=== PATIENT | male | born 1960 | race Two or more races ===

== ENCOUNTER 2020-10-03 10:35 | Outpatient (CLI) | payer OTHER | END 2020-10-03 10:42 | disposition home or self-care (01) | LOC: SONOGRAMA 10:35 | PROVIDERS: ATTEND Internal Medicine | DX: L98.8 Other specified disorders of the skin and subcutaneous tissue (principal); M79.661 Pain in right lower leg; M76.821 Posterior tibial tendinitis, right leg; M89.561 Osteolysis, right lower leg ==

== ENCOUNTER 2021-06-12 06:31 | Outpatient (CLI) | payer OTHER | END 2021-06-12 06:37 | disposition home or self-care (01) | LOC: LAB 06:31 | PROVIDERS: ATTEND Urology | DX: N40.1 Benign prostatic hyperplasia with lower urinary tract symptoms (principal); E78.49 Other hyperlipidemia ==

== ENCOUNTER → 2022-04-20 09:45 | Outpatient (CLI) | payer OTHER | END | disposition home or self-care (01) | LOC: LAB 09:45 | DX: E87.8 Other disorders of electrolyte and fluid balance, not elsewhere classified (principal); E11.9 Type 2 diabetes mellitus without complications; E78.2 Mixed hyperlipidemia; C18.9 Malignant neoplasm of colon, unspecified; E03.9 Hypothyroidism, unspecified; N42.9 Disorder of prostate, unspecified; D63.8 Anemia in other chronic diseases classified elsewhere ==

== ENCOUNTER 2022-04-23 09:27 | Outpatient (CLI) | payer OTHER | END 2022-04-23 09:31 | disposition home or self-care (01) | LOC: MRI 09:27 | PROVIDERS: ATTEND Orthopaedic Surgery | DX: S76.111A Strain of right quadriceps muscle, fascia and tendon, initial encounter (principal) | CPT/HCPCS: 73718 ==

== ENCOUNTER 2022-04-26 14:10 | Outpatient (CLI) | payer OTHER | END 2022-04-26 14:20 | disposition home or self-care (01) | LOC: RAD 14:10 | PROVIDERS: ATTEND Internal Medicine | DX: M17.11 Unilateral primary osteoarthritis, right knee (principal) ==

== ENCOUNTER 2022-12-13 06:09 | Outpatient (CLI) | payer OTHER ==
[2022-12-13 07:04] LABS: HEMATOCRIT 40.7 % (39.0-48.0); HEMOGLOBIN 13.7 g/dL (13-16.00); MEAN CELL VOLUME 87.9 fL (80.0-100.00); MEAN CORPUSCULAR HEMOGLOBIN 29.7 pg (27.00-32.0); MEAN CORPUSCULAR HGB CONC 33.8 g/dl (32.0-36.0); PLATELET COUNT 224 K/uL (150-450); RED BLOOD COUNT 4.63 M/uL (4.00-6.00); RED CELL DISTRIBUTION WIDTH 13.7 % (11.5-14.5)
[2022-12-13 07:23] LABS: PH,URINE 5.5 (5.0-8.0); URINE APPEARANCE Clear; URINE BILIRRUBIN Negative (NEGATIVE); URINE BLOOD Negative; URINE COLOR Yellow; URINE GLUCOSE Negative (NEGATIVE); URINE LEUKOCYTE Trace; URINE NITRATE Negative; URINE PROTEIN Negative (NEGATIVE); URINE UROBILINOGEN 0.2 E.U./dl
[2022-12-13 07:25] LABS: URINE BACTERIA 15.1 uL (0.0-1933); URINE WBC 27.2 uL (0.0-23.2)
[2022-12-13 07:37] LABS: URINE EPITHELIAL CELLS 0.9 uL (0.0-38.8)
[2022-12-13 07:53] LABS: ALBUMIN 3.5 gm/dL (3.4-5.0); BILIRUBIN TOTAL 0.7 mg/dL (0.3-1.2); CALCIUM 8.7 mg/dL (8.5-10.1); CHOL HDL RATIO 3.3 (0-5.0); CREATININE SERUM 1.14 mg/dL (0.70-1.30); GFR 64.67; GLOBULINA 3.6 G/DL (2.4-3.5); POTASSIUM 4.48 mEq/L (3.5-5.1); PROSTATIC SPECIFIC ANTIGEN 0.747 NG/ML (0.010-4.00); TOTAL PROTEIN 7.1 gm/dL (6.4-8.2); TSH 1.8 uIU/mL (0.358-3.74)
== END 2022-12-13 06:11 | disposition home or self-care (01) ==
LOC: LAB 06:09
PROVIDERS: ATTEND Internal Medicine
DX: E11.9 Type 2 diabetes mellitus without complications (principal); E78.2 Mixed hyperlipidemia; D63.8 Anemia in other chronic diseases classified elsewhere; E87.8 Other disorders of electrolyte and fluid balance, not elsewhere classified; E03.9 Hypothyroidism, unspecified; R97.20 Elevated prostate specific antigen [PSA]

== ENCOUNTER 2023-01-13 09:46 | Outpatient (CLI) | payer OTHER | END 2023-01-13 09:49 | disposition home or self-care (01) | LOC: LAB 09:46 | PROVIDERS: ATTEND Internal Medicine | DX: N39.0 Urinary tract infection, site not specified (principal) ==

== ENCOUNTER 2023-01-16 09:52 | Outpatient (CLI) | payer OTHER | END 2023-01-16 09:54 | disposition home or self-care (01) | LOC: SONOGRAMA 09:52 | PROVIDERS: ATTEND Internal Medicine | DX: N40.1 Benign prostatic hyperplasia with lower urinary tract symptoms (principal) ==

== ENCOUNTER 2023-03-31 07:44 | Outpatient (CLI) | payer OTHER ==
[2023-03-31 09:14] LABS: HEMATOCRIT 40.6 % (39.0-48.0); HEMOGLOBIN 13.8 g/dL (13-16.00); MEAN CELL VOLUME 86.7 fL (80.0-100.00); MEAN CORPUSCULAR HEMOGLOBIN 29.5 pg (27.00-32.0); PLATELET COUNT 208 K/uL (150-450); RED BLOOD COUNT 4.68 M/uL (4.00-6.00); RED CELL DISTRIBUTION WIDTH 13.8 % (11.5-14.5)
[2023-03-31 09:16] LABS: URINE APPEARANCE Clear; URINE BILIRRUBIN Negative (NEGATIVE); URINE BLOOD Negative; URINE COLOR Yellow; URINE GLUCOSE Negative (NEGATIVE); URINE LEUKOCYTE Trace; URINE NITRATE Negative; URINE PROTEIN Negative (NEGATIVE)
[2023-03-31 09:21] LABS: URINE RBC 3.1 uL (0.0-20.8); URINE WBC 25.7 uL (0.0-23.2)
[2023-03-31 09:53] LABS: ALBUMIN 3.7 gm/dL (3.4-5.0); BILIRUBIN TOTAL 0.61 mg/dL (0.3-1.2); CALCIUM 9.3 mg/dL (8.5-10.1); CHOL HDL RATIO 2.8 (0-5.0); CREATININE SERUM 1.07 mg/dL (0.70-1.30); GFR 69.36; GLOBULINA 3.2 G/DL (2.4-3.5); POTASSIUM 5.12 mEq/L (3.5-5.1); TOTAL PROTEIN 6.9 gm/dL (6.4-8.2); TSH 1.12 uIU/mL (0.358-3.74)
== END 2023-03-31 07:45 | disposition home or self-care (01) ==
LOC: LAB 07:44
PROVIDERS: ATTEND Internal Medicine
DX: D63.8 Anemia in other chronic diseases classified elsewhere (principal); E87.8 Other disorders of electrolyte and fluid balance, not elsewhere classified; E11.9 Type 2 diabetes mellitus without complications; E78.2 Mixed hyperlipidemia; C18.9 Malignant neoplasm of colon, unspecified